=== PATIENT | male | born 2000 | race African-American/Black ===

== ENCOUNTER 2021-07-12 15:13 | Emergency (ER) | payer OTHER ==
[~2021-07-12] VITALS: Ht 182.9 cm; Wt 93.2 kg
--- NOTE | 2021-07-12 15:59 | REP ---
INDICATION: middle/lac/injury clearing adair. COMPARISON: None. TECHNIQUE: Four views of the left long finger. FINDINGS: Four views of the left long finger demonstrate soft tissue swelling and irregularity with an overlying dressing along the palm are aspect of the middle phalanx. On lateral radiograph, there is a tiny bone density at the palm are aspect of the PIP joint. This appears well corticated and may be old. No opaque foreign body is seen. Joint spaces are preserved. No fracture is noted. IMPRESSION: Soft tissue swelling and irregularity. No definite acute fracture. Old appearing volar plate chip fracture at the PIP joint of the long finger. <Electronically signed by Ayo Barnes > 07/12/21 [id number]
[2021-07-12] MEDS ORDERED: DERMABOND TOPICAL SKIN ADHESIVE TOP ONE (16:45)
[2021-07-12] MEDS ORDERED: BOOSTRIX/ADACEL VACCINE (DIPHTH/PERTUSS/ACELL/TETANUS) 0.5ML SYR IM ONE (16:45)
[2021-07-12 17:18] VITALS: BP 132/75
== END 2021-07-12 17:24 | disposition home or self-care (01) ==
LOC: M ED 15:13
DX: S61.213A Laceration without foreign body of left middle finger without damage to nail, initial encounter (principal); R93.7 Abnormal findings on diagnostic imaging of other parts of musculoskeletal system; W26.8XXA Contact with other sharp object(s), not elsewhere classified, initial encounter; Y92.138 Other place on military base as the place of occurrence of the external cause; Y93.89 Activity, other specified; Y99.1 Military activity

== ENCOUNTER 2023-05-09 11:12 | Emergency (ER) | payer OTHER ==
[~2023-05-09] VITALS: Ht 180.3 cm; Wt 99.5 kg
[2023-05-09 13:59] LABS: GC DNA AMPLIFICATION NEGATIVE (NEGATIVE)
[2023-05-09 14:34] LABS: HIV 1&2 SCREEN NEGATIVE (NEGATIVE)
[2023-05-09 15:20] VITALS: BP 135/78; TEMP 98; O2SAT 100
== END 2023-05-09 15:22 | disposition home or self-care (01) ==
LOC: M ED 11:12
DX: Z11.3 Encounter for screening for infections with a predominantly sexual mode of transmission (principal); B00.1 Herpesviral vesicular dermatitis; D75.A Glucose-6-phosphate dehydrogenase (G6PD) deficiency without anemia; F17.200 Nicotine dependence, unspecified, uncomplicated